=== PATIENT | female | born 2005 | race Hispanic/Latino ===

== ENCOUNTER 2024-11-10 08:43 | Emergency (ER) | payer OTHER ==
[~2024-11-10] VITALS: Ht 149.9 cm; Wt 48.7 kg
[2024-11-10] MEDS ORDERED: FAMOTIDINE 20 MG/2 ML VIAL IV ONE (09:17)
[2024-11-10] MEDS ORDERED: KETOROLAC TROMETHAMINE 30 MG/ML VIAL ONE (09:17)
[2024-11-10] MEDS ORDERED: LACTATED RINGER'S 1,000 ML ONE (09:18)
[2024-11-10] MEDS: FAMOTIDINE 20 MG/2 ML VIAL IV ONE (09:35)
[2024-11-10] MEDS: ONDANSETRON HCL INJ 2MG/ML 2ML 2 MG/ML VIAL IV ONE (09:35)
[2024-11-10] MEDS: LACTATED RINGER'S 1,000 ML INJ ONE (09:35)
[2024-11-10] MEDS: KETOROLAC TROMETHAMINE 30 MG/ML VIAL IV ONE (09:36)
[2024-11-10] MEDS ORDERED: IOPAMIDOL 370 MG/ML 100 ML INFUS..BTL INJ ONE (09:49)
[2024-11-10] MEDS ORDERED: ONDANSETRON ODT4 MG PO (10:18)
[2024-11-10] MEDS ORDERED: FAMOTIDINE20 MG PO (10:18)
[2024-11-10 10:52] VITALS: PULSE 69; RESP 16; TEMP 97.8; O2SAT 100
== END 2024-11-10 10:52 | disposition home or self-care (01) ==
LOC: FSED 08:51
DX: O26.891 Other specified pregnancy related conditions, first trimester (principal); O21.0 Mild hyperemesis gravidarum; R10.11 Right upper quadrant pain
CPT/HCPCS: 80048; 80076; 96374; 96375; 99284; J1308; J1885; J2405; J7121; Q9967